=== PATIENT | male | born 1995 | race Caucasian/White ===

== ENCOUNTER 2022-01-16 08:15 | Emergency (ER) | payer SELFPAY ==
[~2022-01-16] VITALS: Ht 182.9 cm; Wt 81.7 kg
== END 2022-01-16 10:20 | disposition home or self-care (01) ==
LOC: ER 08:15
DX: M79.602 Pain in left arm (principal); V86.56XA Driver of dirt bike or motor/cross bike injured in nontraffic accident, initial encounter; Z53.21 Procedure and treatment not carried out due to patient leaving prior to being seen by health care provider
CPT/HCPCS: 73060; 73070; 73090; J3010